=== PATIENT | female | born 1950 | race Caucasian/White ===

== ENCOUNTER → 2024-10-29 10:34 | Outpatient (CLI) | payer MEDICARE, OTHER, SELFPAY ==
[2024-10-29 11:16] LABS: Influenza A - CEPHEID Flu A NEGATIVE (NEGATIVE); Influenza B - CEPHEID Flu B NEGATIVE (NEGATIVE); Respiratory Syncytial Virus Negative (Negative)
[2024-10-29 11:17] LABS: COVID-19 CEPHEID 4-PLEX PCR Negative (Negative)
== END ==
PROVIDERS: Visit Provider Registered Nurse
DX: R53.83 Other fatigue (principal); R51.9 Headache, unspecified
CPT/HCPCS: 0241U